=== PATIENT | male | born 1990 | race Caucasian/White ===

== ENCOUNTER 2021-11-14 00:16 | Emergency (ER) | payer SELFPAY ==
[~2021-11-14] VITALS: Ht 182.9 cm; Wt 77.1 kg
[2021-11-14 00:24] VITALS: BP 134/79
--- NOTE | 2021-11-14 00:28 | NUR ---
pt to bed8 via w/c
--- NOTE | 2021-11-14 00:58 | NUR ---
Dr. Penny examining patient.
--- NOTE | 2021-11-14 01:24 | NUR ---
Patient taken to CT scan via gurney.
[2021-11-14 01:26] LABS: BASOPHILS % (AUTO) 0.4 % (0.0-2.0); EOSINOPHILS # (AUTO) 0.1 K/uL (0-0.4); EOSINOPHILS % (AUTO) 0.7 % (0.0-4.0); HEMOGLOBIN 14.2 g/dL (12.0-18.0); LYMPHOCYTES # (AUTO) 1.2 K/uL (2.0-11.5); LYMPHOCYTES % (AUTO) 10.3 % (20.5-51.1); MEAN CORPUSCULAR HEMOGLOBIN 31 pg (27-31); MEAN CORPUSCULAR HGB CONC 34 g/dL (33-37); MEAN CORPUSCULAR VOLUME 91.1 fL (80-94); MONOCYTES # (AUTO) 1.2 K/uL (0.8-1.0); MONOCYTES % (AUTO) 10.7 % (1.7-9.3); NEUTROPHILS % (AUTO) 77.9 % (42.2-75.2); PLATELET COUNT (AUTO) 222 K/uL (140-450); RED BLOOD CELL COUNT(AUTO) 4.61 MIL/uL (4.20-6.10); WHITE BLOOD COUNT (AUTO) 11.5 K/uL (4.8-10.8)
--- NOTE | 2021-11-14 01:32 | NUR ---
PT RETURNED FROM CT VIA [facility]
[2021-11-14 01:38] LABS: ALBUMIN 4.1 g/dL (3.4-5.0); ANION GAP 13.3 (8-16); CREATININE 1.1 mg/dL (0.6-1.3); POTASSIUM 3.3 mmol/L (3.5-5.1); TOTAL BILIRUBIN 0.6 mg/dL (0.0-1.0)
[2021-11-14] MEDS: ONDANSETRON 4 MG/2 ML VIAL IVP ONE (01:44)
[2021-11-14] MEDS: FAMOTIDINE 20 MG/2 ML VIAL IVP ONE (01:44)
[2021-11-14] MEDS: MORPHINE SULFATE 4 MG/ML SYR IVP ONE (01:45)
[2021-11-14] MEDS: NACL 0.9% 1,000 ML IV ONE (01:45)
[2021-11-14] MEDS: ALUMINUM HYD/MAG/SIMETHICONE 30 ML UDC PO ONE (02:26)
--- NOTE | 2021-11-14 03:01 | NUR ---
PT STATED AFTER GI COCKTAIL HE NO LONGER HAS EPIGASTRIC PAIN
--- NOTE | 2021-11-14 04:38 | NUR ---
Patient appears to be resting comfortably in bed. Vital Signs within normal limits. Respirations even and unlabored.
--- NOTE | 2021-11-14 06:03 | NUR ---
Patient appears to be resting comfortably in bed. Vital Signs within normal limits. Respirations even and unlabored.
[2021-11-14] MEDS ORDERED: FAMO-92 PO (06:10)
[2021-11-14] MEDS ORDERED: ONDA-188 SL (06:38)
[2021-11-14 06:45] VITALS: BP 128/70
[2021-11-15] MEDS ORDERED: MAG-27 PO (13:37)
[2021-11-15] MEDS ORDERED: ACET-8386 PO (13:39)
[2021-11-15] MEDS ORDERED: DOCU-299 PO (13:39)
== END 2021-11-14 06:45 | disposition home or self-care (01) ==
LOC: EDBD 00:16 → MED 00:16
DX: K29.70 Gastritis, unspecified, without bleeding (principal)
CPT/HCPCS: 36415; 74176; 80053; 85025; 96361; 96374; 96375; 99284; J2270; J2405; J3490

== ENCOUNTER 2021-11-15 11:49 | Emergency (ER) | payer SELFPAY ==
[~2021-11-15] VITALS: Ht 182.9 cm; Wt 77.1 kg
[~2021-11-15 11:49] MED LIST: FAMO-92 PO; ONDA-188 SL
[2021-11-15 11:51] VITALS: BP 129/96
[2021-11-15] MEDS ORDERED: KETOROLAC 15 MG/ML VIAL IVP ONE (12:20)
[2021-11-15] MEDS ORDERED: ONDANSETRON 4 MG/2 ML VIAL IVP ONE (12:20)
[2021-11-15] MEDS ORDERED: NACL 0.9% 1,000 ML IV SCH (12:20)
--- NOTE | 2021-11-15 12:38 | NUR ---
31 Y/O MALE BIB [facility] C/O SHARP EPIGASTRIC PAIN AND NAUSEA AND VOMITING SINCE TUESDAY, REPORTS BEING SEEN YESTERDAY FOR SAME SYMPTOMS AND D/C HOME BUT STATES SYMPTOMS HAVE NOT SUBSIDED. PT STATES THAT HE TOOK TAKE HOME MEDICATION WITH MINIMAL EFFECT. PT ALSO REQUESTING FOR HIS CAST ON THE LEFT ANKLE BE CHECKED HE HAS NOT BEEN ABLE TO GO TO HIS ORTHO. DENIES DIARRHEA, STATES THAT HE "FEELS THOUGH HE IS CONSTIPATED" LAST BM 3DAYS AGO. PMH: DENIES NKA
[2021-11-15] MEDS ORDERED: FAMOTIDINE 20 MG/2 ML VIAL IVP ONE (12:40)
[2021-11-15 12:42] LABS: BASOPHILS # (AUTO) 0.1 K/uL (0.00-0.22); BASOPHILS % (AUTO) 0.5 % (0.0-2.0); EOSINOPHILS % (AUTO) 0.2 % (0.0-4.0); HEMATOCRIT 42.1 % (36-52); HEMOGLOBIN 14.1 g/dL (12.0-18.0); LYMPHOCYTES # (AUTO) 0.9 K/uL (2.0-11.5); LYMPHOCYTES % (AUTO) 7.6 % (20.5-51.1); MEAN CORPUSCULAR HEMOGLOBIN 31 pg (27-31); MEAN CORPUSCULAR HGB CONC 33 g/dL (33-37); MEAN CORPUSCULAR VOLUME 91.3 fL (80-94); MONOCYTES # (AUTO) 1.2 K/uL (0.8-1.0); MONOCYTES % (AUTO) 10.2 % (1.7-9.3); NEUTROPHILS # (AUTO) 9.4 K/uL (1.8-7.7); NEUTROPHILS % (AUTO) 81.5 % (42.2-75.2); PLATELET COUNT (AUTO) 245 K/uL (140-450); RED BLOOD CELL COUNT(AUTO) 4.61 MIL/uL (4.20-6.10); RED CELL DISTRIBUTION WIDTH 14.3 % (11.6-13.7); WHITE BLOOD COUNT (AUTO) 11.5 K/uL (4.8-10.8)
--- NOTE | 2021-11-15 12:52 | NUR ---
TANA ARROYO AT BEDSIDE
[2021-11-15 12:53] LABS: ALBUMIN 4.2 g/dL (3.4-5.0); ANION GAP 15.4 (8-16); CARBON DIOXIDE 26.9 mmol/L (21-32); POTASSIUM 3.3 mmol/L (3.5-5.1); TOTAL BILIRUBIN 0.7 mg/dL (0.0-1.0)
[2021-11-15] MEDS ORDERED: ALUMINUM HYD/MAG/SIMETHICONE 30 ML, DICYCLOMINE HCL LIQUID 20 MG, LIDOCAINE VISCOUS 2% ... PO ONE ×3 (13:35)
[2021-11-15] MEDS ORDERED: MAG-27 PO (13:37)
[2021-11-15] MEDS ORDERED: ACET-8386 PO (13:39)
[2021-11-15] MEDS ORDERED: DOCU-299 PO (13:39)
[2021-11-15] MEDS ORDERED: DICYCLOMINE HCL LIQUID 10 MG/5 ML UDC ONE (13:52)
[2021-11-15] MEDS ORDERED: ALUMINUM HYD/MAG/SIMETHICONE 30 ML UDC ONE (13:52)
[2021-11-15 14:39] VITALS: BP 112/71
--- NOTE | 2021-11-15 14:39 | NUR ---
Patient discharged with v/s stable. Written and verbal after care instructions ABOUT N/V AND ABD PAIN given and explained. Patient alert, oriented and verbalized understanding of instructions. Ambulatory with steady gait. All questions addressed prior to discharge. ID band removed. Patient advised to follow up with PMD. Rx of NORCO 5-325, COLACE, MYLANTA given. Patient educated on indication of medication including possible reaction and side effects. Opportunity to ask questions provided and answered.
== END 2021-11-15 14:39 | disposition home or self-care (01) ==
LOC: MED 11:49
DX: S92.002D Unspecified fracture of left calcaneus, subsequent encounter for fracture with routine healing (principal); K59.00 Constipation, unspecified; X58.XXXD Exposure to other specified factors, subsequent encounter
CPT/HCPCS: 36415; 80053; 83690; 85025; 96361; 96374; 96375; 99284; J1885; J2405; J3490; J7030

== ENCOUNTER 2021-11-17 12:29 | Emergency (ER) | payer MEDICAID ==
[~2021-11-17] VITALS: Ht 182.9 cm; Wt 72.6 kg
[~2021-11-17 12:29] MED LIST changes: +ACET-8386 PO; +DOCU-299 PO; +MAG-27 PO
[2021-11-17 12:55] VITALS: BP 127/76
--- NOTE | 2021-11-17 13:01 | NUR ---
PT W/C ASSISTED TO BED 7
--- NOTE | 2021-11-17 13:31 | NUR ---
Patient was assisted to the restroom via wheelchair.
[2021-11-17] MEDS ORDERED: NACL 0.9% 1,000 ML IV ONE (13:35)
--- NOTE | 2021-11-17 13:53 | NUR ---
RYAN started, obtained blood samples and SHANTHI specimen. Walked to lab, handed to CPT Gurmeet
[2021-11-17 14:18] LABS: BASOPHILS % (AUTO) 0.4 % (0.0-2.0); EOSINOPHILS % (AUTO) 0.2 % (0.0-4.0); HEMATOCRIT 41.8 % (36-52); LYMPHOCYTES # (AUTO) 1.2 K/uL (2.0-11.5); LYMPHOCYTES % (AUTO) 10.6 % (20.5-51.1); MEAN CORPUSCULAR HEMOGLOBIN 31 pg (27-31); MEAN CORPUSCULAR HGB CONC 34 g/dL (33-37); MEAN CORPUSCULAR VOLUME 91.2 fL (80-94); MONOCYTES # (AUTO) 1.2 K/uL (0.8-1.0); MONOCYTES % (AUTO) 10.5 % (1.7-9.3); NEUTROPHILS % (AUTO) 78.3 % (42.2-75.2); PLATELET COUNT (AUTO) 261 K/uL (140-450); RED BLOOD CELL COUNT(AUTO) 4.58 MIL/uL (4.20-6.10); WHITE BLOOD COUNT (AUTO) 11.5 K/uL (4.8-10.8)
[2021-11-17] MEDS ORDERED: diphenhydrAMINE 50 MG/ML VIAL IVP ONE (14:20)
[2021-11-17] MEDS ORDERED: FAMOTIDINE 20 MG/2 ML VIAL IVP ONE (14:20)
[2021-11-17] MEDS ORDERED: METOCLOPRAMIDE 10 MG/2 ML INJ VIAL IVP ONE (14:20)
[2021-11-17 14:24] LABS: ALBUMIN 4.3 g/dL (3.4-5.0); ANION GAP 15.2 (8-16); CARBON DIOXIDE 28.1 mmol/L (21-32); CREATININE 1.1 mg/dL (0.6-1.3); POTASSIUM 3.3 mmol/L (3.5-5.1); TOTAL BILIRUBIN 0.6 mg/dL (0.0-1.0)
--- NOTE | 2021-11-17 14:45 | NUR ---
31/M PRESENTS TO ED WITH C/O ABDOMINAL PAIN, N/V TODAY. REPORTS BEING SEEN HERE TWICE LAST WEEK FOR SAME SYMPTOMS BUT REPORTS RX MEDS ARE NOT HELPING. PATIENT REPORTS "HALLUCINATIONS AND BRIGHT LIGHTS" DENIES SI, HI, DENIES DRUG OR ALCOHOL USE. DENIES CP, SOB.
[2021-11-17] MEDS ORDERED: ONDA-188 SL (14:59)
[2021-11-17 15:31] VITALS: BP 134/88
--- NOTE | 2021-11-17 15:31 | NUR ---
Patient discharged with v/s stable. Written and verbal after care instructions given. Patient alert, oriented and verbalized understanding of instructions. Ambulatory with steady gait. All questions addressed prior to discharge. ID band removed. Patient advised to follow up with PMD. Rx of Zofran given. Opportunity to ask questions provided and answered. WORK NOTE HANDED TO PATIENT.
--- NOTE | 2021-11-17 15:45 | NUR ---
The patient's care was reviewed and supervised by Brenda Meng RN.
== END 2021-11-17 15:31 | disposition home or self-care (01) ==
LOC: MED 12:29
DX: R10.84 Generalized abdominal pain (principal); Z20.822 Contact with and (suspected) exposure to COVID-19; F12.90 Cannabis use, unspecified, uncomplicated
CPT/HCPCS: 36415; 80053; 85025; 87426; 96374; 96375; 99284; J1200; J2765; J3490; J7030

== ENCOUNTER 2021-12-08 11:03 | Emergency (ER) | payer MEDICAID ==
[~2021-12-08] VITALS: Ht 182.9 cm; Wt 63.5 kg
[2021-12-08 11:09] VITALS: BP 139/84
--- NOTE | 2021-12-08 11:26 | NUR ---
W/C ASSISTED TO BED 7
[2021-12-08] MEDS ORDERED: METOCLOPRAMIDE 10 MG/2 ML INJ VIAL IVP ONE (11:45)
[2021-12-08] MEDS ORDERED: diphenhydrAMINE 50 MG/ML VIAL IVP ONE (11:45)
[2021-12-08] MEDS ORDERED: NACL 0.9% 1,000 ML IV ONE (11:45)
--- NOTE | 2021-12-08 12:00 | NUR ---
31YO MALE PT C/O N/V , BODY ACHES, FATIGUE AND ANXIETY [id number]. UNABLE TO RECALL VOMIT xEPISODES, DENIES BLOOD. [id number]/10 ACHING ABDOMINAL PAIN . ABDOMEN NON TENDER OR DISTENDED. DENIES RELIEF AFTER TAKING ZOFRAN . PT AAOX4, WHEELCHAIR ASSISTED TO BED . RESPIRATIONS EVEN AND UNLABORED. HOB POSITIONED PER COMFORT. BED AT LOWEST POSITION, BED RAIL UPX2. HX: KIDNEY STONES, GASTRITIS NKA
[2021-12-08] MEDS ORDERED: KETOROLAC 30 MG/ML VIAL IVP ONE (12:05)
--- NOTE | 2021-12-08 12:14 | NUR ---
ULTRASOUND AT BEDSIDE
[2021-12-08 12:16] LABS: BASOPHILS % (AUTO) 0.3 % (0.0-2.0); EOSINOPHILS % (AUTO) 0.1 % (0.0-4.0); HEMATOCRIT 42.1 % (36-52); HEMOGLOBIN 14.1 g/dL (12.0-18.0); LYMPHOCYTES # (AUTO) 0.7 K/uL (2.0-11.5); LYMPHOCYTES % (AUTO) 5.7 % (20.5-51.1); MEAN CORPUSCULAR HEMOGLOBIN 30 pg (27-31); MEAN CORPUSCULAR HGB CONC 33 g/dL (33-37); MEAN CORPUSCULAR VOLUME 91.1 fL (80-94); MONOCYTES # (AUTO) 0.7 K/uL (0.8-1.0); MONOCYTES % (AUTO) 5.8 % (1.7-9.3); NEUTROPHILS # (AUTO) 10.7 K/uL (1.8-7.7); NEUTROPHILS % (AUTO) 88.1 % (42.2-75.2); PLATELET COUNT (AUTO) 277 K/uL (140-450); RED BLOOD CELL COUNT(AUTO) 4.63 MIL/uL (4.20-6.10); RED CELL DISTRIBUTION WIDTH 13.8 % (11.6-13.7); WHITE BLOOD COUNT (AUTO) 12.2 K/uL (4.8-10.8)
[2021-12-08 12:42] LABS: ALBUMIN 4.1 g/dL (3.4-5.0); ANION GAP 16.4 (8-16); CARBON DIOXIDE 25.3 mmol/L (21-32); POTASSIUM 3.7 mmol/L (3.5-5.1); TOTAL BILIRUBIN 0.6 mg/dL (0.0-1.0)
[2021-12-08] MEDS ORDERED: FAMO-92 PO (13:16)
[2021-12-08] MEDS ORDERED: SIME125T38 PO (13:16)
[2021-12-08] MEDS ORDERED: ONDA-188 PO (13:16)
[2021-12-08 13:27] VITALS: BP 122/70
--- NOTE | 2021-12-08 13:27 | NUR ---
Patient discharged with v/s stable. Written and verbal after care instructions given and explained. Patient alert, oriented and verbalized understanding of instructions. Ambulatory with steady gait. All questions addressed prior to discharge. ID band removed. Patient advised to follow up with PMD. Rx of MYLANTA given. Patient educated on indication of medication including possible reaction and side effects. Opportunity to ask questions provided and answered.
== END 2021-12-08 13:27 | disposition home or self-care (01) ==
LOC: MED 11:03
DX: A08.4 Viral intestinal infection, unspecified (principal); R11.0 Nausea; Z79.899 Other long term (current) drug therapy
CPT/HCPCS: 36415; 76705; 80053; 83690; 84484; 85025; 96361; 96374; 99284; J1885; J7030; Q0092